=== PATIENT | male | born 1980 | race Caucasian/White ===

== ENCOUNTER 2016-12-09 21:55 | Inpatient (IN) | payer BC, OTHER ==
--- NOTE | 2016-12-09 22:07 | EDPHY ---
H & P Stated Complaint: DYSPNEA AND CHEST PAIN HPI/ROS: HPI CHIEF COMPLAINT: Chest pain HISTORY OF PRESENT ILLNESS: This patient very pleasant 36-year-old male, denies having any significant medical history does not take any daily medications he presents emergency room with chest discomfort. Patient reports that he was doing jujitsu an hour ago and developed sudden-onset pain in his left chest dull ache pressure sensation radiating to his bilateral jaws left side of his neck left arm and left scapula. It has been persistent for the past hour. He went home took a shower he thought it would go away he thought it was from doing ju[employer] however persistent he came to the emergency room. He drove himself here. Upon arrival to the emergency room is immediately brought back to ER room 11. He is actively having pain. His vital signs were noted at triage. He does not appear toxic he appears well. He denies having history of cardiac disease. Or any significant family history at a young age. He reports alcohol this weekend. Also took Kratom before 90 minutes massage today. No chest tenderness on palpation. No chest pain with range of motion. Past Medical History: Denies medical history Past Surgical History: Denies surgical history Social History: Alcohol this weekend, Kratom today denies daily tobacco use however smoked for 10 years. Family History: [place] in his father at age 50. ROS REVIEW OF SYSTEMS: A comprehensive 10 point review of systems is otherwise negative aside from elements mentioned in the history of present illness. Exam Constitutional triage nursing summary reviewed, vital signs reviewed, awake/ alert. Eyes normal conjunctivae and sclera, EOMI, PERRLA. HENT normal inspection, atraumatic, moist mucus membranes, no epistaxis, neck supple/ no meningismus, no raccoon eyes. Respiratory clear to auscultation bilaterally, normal breath sounds, no respiratory distress, no wheezing. Cardiovascular rate normal, regular rhythm, no murmur, no edema, distal pulses normal. Gastrointestinal soft, non-tender, no rebound, no guarding, normal bowel sounds, no distension, no pulsatile mass. Genitourinary no CVA tenderness. Musculoskeletal no midline vertebral tenderness, full range of motion, no calf swelling, no tenderness of extremities, no meningismus, good pulses, neurovascularly intact. Skin pink, warm, & dry, no rash, skin atraumatic. Neurologic awake, alert and oriented x 3, AAOx3, moves all 4 extremities equally, motor intact, sensory intact, CN II-XII intact, normal cerebellar, normal vision, normal speech. Psychiatric normal mood/affect. Heme/Lymph/Immune no lymphadenopathy. Differential diagnosis includes but is not limited to: ACS, atypical chest pain , pneumothorax, pneumonia, pulmonary embolism, aortic dissection, congestive heart failure, tumor, musculoskeletal pain, esophageal pain, GERD, peptic ulcer disease, pancreatitis Medical Decision Making: Plan for this patient full pvc monitor obtain EKG to rule out acute coronary syndrome, IV establishment, blood pressure both arms , chest x-ray, rule out aortic dissection Re-evaluation: EKG interpretation by me on record in [employer] system. Impression time of EKG 2216 this is sinus rhythm rate of 62. I do not appreciate acute ischemia with this EKG. There is no ST elevation. No significant ST depression. No significant T-wave abnormalities. 6: Patient receive full-dose aspirin and nitroglycerin. Refusing morphine. Still having ongoing chest pain. Will repeat his EKG. Chest x-ray one view. No pneumothorax. Mediastinum narrow. Interpreted by myself. 2306: I spoke with Dr. Michael to heal with Cardiology. We went over this patient's case. He did see the patient's EKG. He does not feel that the patient needs cardiac activation at this time. The EKG does not indicate acute ST elevation KS. He did request that we do a CT angiogram coronary scan with gated windows with 50 p.o. metoprolol however when I spoke with Radiology Dr. Delphine Cuadra she says were unable to perform this study at this time of night as a requires certain parameters and nursing skill at the CT scanner. And that to CT scan alena cuadra have never done this study. She also reports to me that we do not do this study at night it needs to be done during the day. She does state that for trying to rule out aortic dissection we should proceed with a CT angiogram with IV contrast which I will do. Most likely this patient be admitted to the hospital overnight for chest pain evaluation. Dr. Alec Hoskins you can see this patient in the morning. And if we still need a CT coronary will obtain that in the morning. EKG interpretation by me on record in [employer] system. Impression time of EKG 2247, this is a repeat EKG sinus rhythm rate of 64 again I do not appreciate acute ischemia. No ST elevation. No ST depression. No significant T-wave abnormalities. 2314: Troponin noted to be positive 0.125. I will touch base with Cardiology once again as the patient is having ongoing pain. 2320: Patient is still having ongoing chest pain. Patient be started on a nitroglycerin drip. After review his CT angiogram to make sure not have an aortic dissection he will be started on heparin. He will be admitted to the PCU. He does have a positive troponin. He still has ongoing pain in his agree to take morphine he initially declined this. Plan will be for morphine dose, heparin drip, nitroglycerin drip, serial EKGs serial troponins and admission to PCU. Cardiology has been consulted. I spoke with Dr. Alec Hoskins multiple times. EKG does not meet STEMI criteria. EKG interpretation by me on record in [employer] system. Impression time of EKG 2320, this is sinus rhythm rate of 60. This is a repeat EKG. I do not appreciate any ST elevation on this EKG or significant ST depression or significant T-wave abnormalities. Micro amplitude lead 3 and AVF. Otherwise unremarkable EKG. 3rd EKG. 2326: Spoke with Dr. Delphine Cuadra. She reports to me that this patient has a negative CT angio of his chest. No pulmonary embolism. No aortic dissection. Unremarkable CT angiogram. 2327: Given this will start heparin drip. Admit to medicine/hospalist. Cards Consulted. Heparin Gtt, NTG, Gtt. Full dose Asprin given. Patient doing better. Resting. Pain much improved. Source: Patient - Personal History Current Tetanus/Diphtheria Vaccine: Unsure Current Tetanus Diphtheria and Acellular Pertussis (TDAP): Unsure - Medical/Surgical History Hx Asthma: No Hx Chronic Respiratory Disease: No Hx Diabetes: No Hx Cardiac Disease: No Hx Renal Disease: No Hx Cirrhosis: No Hx Alcoholism: No Hx HIV/AIDS: No Hx Splenectomy or Spleen Trauma: No Other PMH: GERD , LOW BACK INJURY 2013, - Social History Smoking Status: Former smoker Constitutional: Initial Vital Signs Temperature (C) 36.8 C 12/09/16 22:02 Heart Rate 66 12/09/16 22:02 Respiratory Rate 22 H 12/09/16 22:02 Blood Pressure 154/92 H 12/09/16 22:02 O2 Sat (%) 100 12/09/16 22:02 O2 Delivery Mode Room Air Allergies/Adverse Reactions: No Known Allergies Allergy (Unverified 12/09/16 22:04) Home Medications: Medication Instructions Recorded Cholecalciferol Vit D3 [Vitamin D3 1,000 units PO DAILY 12/10/16 (*)] Herbals/Supplements -Info Only 1 ea PO DAILY 12/10/16 Multivitamins [Multivitamin (*)] 1 each PO DAILY 12/10/16 Omeprazole [Prilosec 20 mg] 20 mg PO DAILY 12/10/16 Medical Decision Making - Data Points Laboratory Results: Laboratory Results 12/09/16 22:31 12/09/16 22:31 Medications Given: Hydrocodone Bitart/Acetaminophen ([place] 5/325) 1 - 2 tab PO Q4HRS PRN PRN Reason: Pain, Moderate Able to Take PO Stop: 12/20/16 00:07 Last Admin: 12/10/16 15:06 Dose: 1 tab Aspirin Buffered (Aspirin Ec) 325 mg PO DAILY [facility] Stop: 06/08/17 08:59 Last Admin: 12/10/16 15:06 Dose: 325 mg Atorvastatin Calcium (Lipitor) 80 mg PO DAILY [facility] Stop: 06/08/17 08:59 Last Admin: 12/10/16 11:30 Dose: 80 mg Clopidogrel Bisulfate (Plavix) 75 mg PO DAILY [facility] Stop: 06/08/17 08:59 Last Admin: 12/10/16 14:05 Dose: Not Given Nitroglycerin/Dextrose (Nitroglycerin 200 Mcg/Ml (Premix)) 250 mls @ 0 mls/hr IV CONT CASANDRA; Titrate PRN Reason: Protocol Stop: 06/07/17 23:29 Last Admin: 12/09/16 23:39 Dose: 250 mls Lisinopril (Zestril) 2.5 mg PO DAILY [facility] Stop: 06/08/17 08:59 Last Admin: 12/10/16 12:25 Dose: 2.5 mg Lorazepam (Ativan Injection) 0.5 - 1 mg IVP Q8HRS PRN PRN Reason: Anxiety, Unable to Take PO Stop: 06/08/17 00:07 Last Admin: 12/10/16 01:29 Dose: 1 mg Metoprolol Tartrate (Lopressor) 25 mg PO BID CASANDRA Stop: 06/08/17 08:59 Last Admin: 12/10/16 15:09 Dose: 25 mg Morphine Sulfate (Morphine) 2 - 4 mg IVP Q1HR PRN PRN Reason: Pain, Severe Unable to Take PO Stop: 12/20/16 00:07 Last Admin: 12/10/16 15:05 Dose: 2 mg Discontinued Medications Acetaminophen (Tylenol) 1,000 mg PO EDNOW ONE Stop: 12/10/16 00:12 Last Admin: 12/10/16 00:25 Dose: 1,000 mg Aspirin Buffered (Aspirin Ec) 325 mg PO EDNOW ONE Stop: 12/09/16 22:17 Last Admin: 12/09/16 22:29 Dose: 325 mg Aspirin Buffered (Aspirin Ec) 325 mg PO ONCALL ONE Stop: 12/10/16 07:33 Last Admin: 12/10/16 14:06 Dose: Not Given Clopidogrel Bisulfate (Plavix) 600 mg PO ONCE ONE Stop: 12/10/16 08:53 Last Admin: 12/10/16 12:36 Dose: Not Given Diazepam (Valium) 5 mg PO ONCALL ONE Stop: 12/10/16 07:33 Last Admin: 12/10/16 14:05 Dose: Not Given Diphenhydramine HCl (Benadryl) 25 mg PO ONCALL ONE Stop: 12/10/16 07:33 Last Admin: 12/10/16 14:04 Dose: Not Given Famotidine (Pepcid) 20 mg PO ONCALL ONE Stop: 12/10/16 07:33 Last Admin: 12/10/16 14:04 Dose: Not Given Heparin Sodium (Porcine) (Heparin Injection) 0 unit IVP ONCE ONE PRN Reason: Protocol Stop: 12/10/16 00:14 Last Admin: 12/10/16 00:26 Dose: 5,800 units Hydromorphone HCl (Dilaudid) 1 mg IVP ONCE ONE Stop: 12/10/16 02:40 Last Admin: 12/10/16 05:21 Dose: Not Given Sodium Chloride (Ns) 1,000 mls @ 0 mls/hr IV EDNOW ONE; Wide Open PRN Reason: Protocol Stop: 12/09/16 22:14 Last Admin: 12/09/16 22:29 Dose: 1,000 mls Heparin Sodium (Porcine) (Heparin 50 Units/Ml (Premix)) 500 mls @ 0 mls/hr IV EDNOW ONE PRN Reason: As Directed Stop: 12/09/16 23:27 Last Admin: 12/09/16 23:53 Dose: 500 mls Sodium Chloride (Ns) 1,000 mls @ 0 mls/hr IV ONCE ONE PRN Reason: Wide Open Stop: 12/09/16 23:34 Last Admin: 12/09/16 23:34 Dose: 1,000 mls Magnesium Sulfate/Dextrose (Magnesium Sulf 1 Gm (Premix)) 100 mls @ 100 mls/hr IV ONCE ONE Stop: 12/10/16 01:16 Last Admin: 12/10/16 01:49 Dose: 100 mls Magnesium Sulfate/Dextrose (Magnesium Sulf 1 Gm (Premix)) 100 mls @ 100 mls/hr IV ONCE ONE Stop: 12/10/16 14:23 Last Admin: 12/10/16 15:06 Dose: 100 mls Metoprolol Tartrate (Lopressor) 50 mg PO EDNOW ONE Stop: 12/09/16 23:01 Last Admin: 12/09/16 23:09 Dose: Not Given Morphine Sulfate (Morphine) 4 mg IVP EDNOW ONE Stop: 12/09/16 22:17 Last Admin: 12/09/16 23:24 Dose: 4 mg Morphine Sulfate (Morphine) 4 mg IVP EDNOW ONE Stop: 12/09/16 23:21 Last Admin: 12/09/16 23:31 Dose: Not Given Morphine Sulfate (Morphine) 4 mg IVP EDNOW ONE Stop: 12/09/16 23:34 Last Admin: 12/09/16 23:38 Dose: 4 mg Morphine Sulfate (Morphine) 1 - 2 mg IVP Q1HR PRN PRN Reason: Pain, Severe Unable to Take PO Stop: 12/20/16 00:07 Last Admin: 12/10/16 02:41 Dose: 2 mg Nitroglycerin (Nitrostat) 0.4 mg SL EDNOW ONE Stop: 12/09/16 22:17 Last Admin: 12/09/16 22:29 Dose: 0.4 mg Ondansetron HCl (Zofran) 4 mg IVP EDNOW ONE Stop: 12/09/16 22:17 Last Admin: 12/09/16 23:16 Dose: Not Given Ondansetron HCl (Zofran) 4 mg IVP EDNOW ONE Stop: 12/09/16 23:21 Last Admin: 12/09/16 23:22 Dose: 4 mg Departure - Departure Disposition: To OP Cath/Surgery Clinical Impression: Troponin level elevated Chest pain Qualifiers: Chest pain type: unspecified Qualified Code(s): R07.9 - Chest pain, unspecified Condition: Serious
[2016-12-09] MEDS ORDERED: NS 1,000 ML IV ONE ×2 (22:13→23:33)
[2016-12-09] MEDS ORDERED: NITROGLYCERIN 0.4 MG BTL SL ONE (22:16)
[2016-12-09] MEDS ORDERED: ONDANSETRON 4 MG/2 ML VIAL IVP ONE ×2 (22:16→23:20)
[2016-12-09] MEDS ORDERED: ASPIRIN EC 325 MG TAB PO ONE (22:16)
--- NOTE | 2016-12-09 22:19 | CPEKG ---
Heart Rate: 62 RR Interval: 968 P-R Interval: 152 QRSD Interval: 98 QT Interval: 380 QTC Interval: 386 P Arboles: 50 QRS [place]boles: 59 T Wave [place]: 43 EKG Severity - NORMAL ECG - EKG Impression: SINUS RHYTHM EKG Impression: ST elevation in aVF, II Electronically Signed By: Angel Ramirez 11-Dec-2016 10:54:31
[2016-12-09] MEDS ORDERED: IOPAMIDOL (ISOVUE 370) 100 ML BTL IV ONE (22:29)
[2016-12-09 22:39] LABS: % IMMATURE GRANULYOCYTES 0.3 % (0.0-1.1); ABSOLUTE IMMATURE GRANULOCYTES 0.04 10^3/uL (0.00-0.10); ADD DIFF? NO; ADD MORPH? NO; ADD SCAN? NO; ATYPICAL LYMPHOCYTE FLAG 0 (0-99); FRAGMENT RBC FLAG 0 (0-99); HEMATOCRIT 43.7 % (40.0-51.0); HEMOGLOBIN 15.3 g/dL (13.7-17.5); LEFT SHIFT FLG 0 (0-99); LIPEMIA HEMOLYSIS FLAG 90 (0-99); MEAN CELL HEMOGLOBIN 31.6 pg (27.9-34.1); MEAN CELL VOLUME 90.3 fL (81.5-99.8); MEAN PLATELET VOLUME 9.6 fL (8.7-11.7); PLATELET CLUMPS FLAG 0 (0-99); PLATELET COUNT 225 10^3/uL (150-400); RED BLOOD CELL COUNT 4.84 10^6/uL (4.40-6.38); RED CELL DISTRIBUTION WIDTH 11.8 % (11.5-15.2)
[2016-12-09 22:48] LABS: INR 0.94 (0.83-1.16); PROTIME(PATIENT) 12.5 SEC (12.0-15.0)
[2016-12-09 22:59] LABS: ALANINE AMINOTRANSFERASE 57 IU/L (21-72); ALBUMIN 4.6 g/dL (3.5-5.0); ALKALINE PHOSPHATASE 71 IU/L (38-126); ANION GAP 13 mEq/L (8-16); ASPARTATE AMINOTRANSFERASE 45 IU/L (17-59); BILIRUBIN,TOTAL 0.5 mg/dL (0.1-1.4); BILIRUBIN-CONJUGATED 0.2 mg/dL (0.0-0.5); BILIRUBIN-UNCONJUGATED 0.3 mg/dL (0.0-1.1); CALCIUM 9.8 mg/dL (8.5-10.4); CARBON DIOXIDE 24 mEq/l (22-31); CHLORIDE 98 mEq/L (97-110); CREATININE 1.2 mg/dL (0.7-1.3); GLOMERULAR FILTRATION RATE > 60; GLUCOSE 92 mg/dL (70-100); MAGNESIUM 1.4 mg/dL (1.6-2.3); POTASSIUM 3.7 mEq/L (3.5-5.2); SODIUM 135 mEq/L (134-144); TOTAL PROTEIN 7.2 g/dL (6.3-8.2)
[2016-12-09] MEDS ORDERED: METOPROLOL TARTRATE 50 MG TAB PO ONE (23:00)
[2016-12-09 23:11] LABS: TROPONIN I 0.125 ng/mL (0.000-0.034)
--- NOTE | 2016-12-09 23:23 | CPEKG ---
Heart Rate: 60 RR Interval: 1000 P-R Interval: 164 QRSD Interval: 100 QT Interval: 400 QTC Interval: 400 P [place]: 51 QRS [place]: 41 T Wave [place]: 39 EKG Severity - NORMAL ECG - EKG Impression: SINUS RHYTHM Electronically Signed By: Angel Ramirez 11-Dec-2016 10:53:47
[2016-12-09] MEDS ORDERED: HEPARIN/DEXTROSE 500 ML IV ONE (23:26)
[2016-12-09] MEDS ORDERED: NITROGLYCERIN/DEXTROSE 250 ML IV SCH (23:30)
[2016-12-10] MEDS ORDERED: HEPARIN 10,000 UNIT/10 ML MDV ONE ×2 (00:01→07:32)
[2016-12-10] MEDS ORDERED: ACETAMINOPHEN 325 MG TAB PO PRN (00:08)
[2016-12-10] MEDS ORDERED: ACETAMINOPHEN 650 MG SUPP PR PRN (00:08)
[2016-12-10] MEDS ORDERED: ONDANSETRON 4 MG/2 ML VIAL IVP PRN (00:08)
[2016-12-10] MEDS ORDERED: ACETAMINOPHEN 500 MG TAB PO ONE (00:11)
[2016-12-10] MEDS ORDERED: HEPARIN 10,000 UNIT/10 ML MDV IVP ONE (00:13)
[2016-12-10] MEDS ORDERED: HEPARIN 10,000 UNIT/10 ML MDV IVP PRN (00:13)
[2016-12-10] MEDS ORDERED: HEPARIN/DEXTROSE 500 ML IV SCH (00:15)
[2016-12-10] MEDS ORDERED: NS 1,000 ML IV SCH ×3 (00:15→09:00)
[2016-12-10] MEDS ORDERED: PROTOCOL MAGNESIUM 1 DOSE IV PRN (00:17)
[2016-12-10] MEDS ORDERED: MAGNESIUM SULF 1 GM/DEXTROSE 100 ML IV ONE ×2 (00:17→13:24)
[2016-12-10] MEDS ORDERED: PROTOCOL POTASSIUM 1 DOSE MISC PRN (00:17)
[2016-12-10] MEDS ORDERED: hydrALAZINE 20 MG/ML VIAL IVP PRN (00:18)
[2016-12-10] MEDS ORDERED: NITROGLYCERIN/DEXTROSE 250 ML IV SCH (00:30)
[2016-12-10] MEDS ORDERED: LORazepam 2 MG/ML INJ ONE (01:24)
[2016-12-10] MEDS: LORazepam 2 MG/ML INJ IVP PRN ×2 (01:29→20:50)
[2016-12-10] MEDS ORDERED: MAGNESIUM SULF 1 GM/DEXTROSE 100 ML BAG IV ONE (01:45)
[2016-12-10] MEDS ORDERED: HYDROmorphONE/DILAUDID 1 MG/ML INJ IVP ONE (02:39)
--- NOTE | 2016-12-10 03:20 | PDGENHP ---
History and Physical - Chief Complaint Chest pain - History of Present Illness Date of Service 12/10/2016 Source - patient provides history and appears reliable. EMR reviewed and case discussed with ED provider. HPI - Pleasant 36 yo M without significant PMHx who presents to the ED today after development of left sided chest pain. Patient reports his symptoms started during [facility] [employer] session this evening and have not been relieved by any rest, massage or movement. Patient describes pain as severe and achy. He notes radiating pain to his bilateral jaws, left shoulder, arm and shoulder blades. Patient reports a very active lifestyle jogging multiple times weekly and participating in various sports. Patient notes his average resting heart rate typically 40s-50. FHx significant for CAD father age 50s-60s and paternal uncle with event in his 40s. Patient admits he utilized a dose of Kratom (herbal supplement used for stimulant/pain properties with potential risks for cardiac involvement/seizures ) earlier today prior to having a massage to help him relax. He subsequently went to [facility] where he began to experience his sx as above. History Information - Allergies/Home Medication List Allergies/Adverse Reactions: No Known Allergies Allergy (Unverified 12/09/16 22:04) Home Medications: NK [No Known Home Meds] 12/09/16 [Last Taken Unknown] I have personally reviewed and updated: family history, medical history, social history, surgical history - Past Medical History Additional medical history: anxiety, chronic back pain related to herniated disk after injury. - Surgical History Reports: no pertinent surgical hx - Family History Positive for: CAD, father with history of CAD younger than 55 (50-60 patient unsure on exact age) Additional family history: paternal uncle CAD/UT age 40s. - Social History Smoking Status: Former smoker Alcohol Use: Occasionally Drug Use: None Additional social history: Code - FULL. Review of Systems Review of Systems: ROS: 10pt was reviewed & negative except for what was stated in HPI & below Respiratory: Reports: cough (exposure to neice/nephew with similar sx. ) Genitourinary: Reports: other (hx of occasional urinary retention with history of back injury and disc herniation. ) Physical Exam Physical Exam: Temp Pulse Resp BP Pulse Ox 36.8 C 76 20 127/69 H 92 12/09/16 22:02 12/10/16 02:00 12/10/16 02:00 12/10/16 02:00 12/10/16 02:00 Constitutional: no apparent distress, appears nourished, other (NAD. pleasant adult male resting on gurney. Patient appears to be unable to get comfortable holding his right arm over left arm. ) Eyes: PERRL, anicteric sclera, EOMI Ears, Nose, Mouth, Throat: moist mucous membranes, other Cardiovascular: regular rate and rhythym (slightly malvin 60s), no murmur, rub, or gallop, systolic murmur Peripheral Pulses: 1+: dorsalis-pedis (R), dorsalis-pedis (L) Gastrointestinal: normoactive bowel sounds, soft, non-tender abdomen, no palpable masses, No tenderness Genitourinary: no bladder fullness, no bladder tenderness, No salmon in urethra Skin: warm, No erythema, No fluctuance, No rash Musculoskeletal: full muscle strength, No generalized weakness Neurologic: AAOx3, sensation intact bilaterally, other (nonfocal exam. ), No weakness, No numbness Psychiatric: anxious, No depressed, No suicidal ideation, No poor insight, No poor judgement, No poor memory Lymph, Heme, Immunologic: No lymphadenopathy Lab Data & Imaging Review 12/09/16 22:31 12/09/16 22:31 WBC 13.87 10^3/uL (3.80-9.50) H 12/09/16 22:31 RBC 4.84 10^6/uL (4.40-6.38) 12/09/16 22:31 Hgb 15.3 g/dL (13.7-17.5) 12/09/16 22:31 Hct 43.7 % (40.0-51.0) 12/09/16 22:31 MCV 90.3 fL (81.5-99.8) 12/09/16 22:31 MCH 31.6 pg (27.9-34.1) 12/09/16 22:31 MCHC 35.0 g/dL (32.4-36.7) 12/09/16 22:31 RDW 11.8 % (11.5-15.2) 12/09/16 22:31 Plt Count 225 10^3/uL (150-400) 12/09/16 22:31 MPV 9.6 fL (8.7-11.7) 12/09/16 22: Neut % (Auto) 76.1 % (39.3-74.2) H 12/09/16 22: Lymph % (Auto) 14.5 % (15.0-45.0) L 12/09/16: [place] % (Auto) 6.7 % (4.5-13.0) 12/09/16: Eos % (Auto) 2.0 % (0.6-7.6) 12/09/16 22: Baso % (Auto) 0.4 % (0.3-1.7) 12/09/16: Nucleat RBC Rel Count 0.0 % (0.0-0.2) 12/09/16: Absolute Neuts (auto) 10.56 10^3/uL (1.70-6.50) H 12/09/16 22: Absolute Lymphs (auto) 2.01 10^3/uL (1.00-3.00) 12/09/16 22: Absolute Monos (auto) 0.93 10^3/uL (0.30-0.80) H 12/09/16 22:31 Absolute Eos (auto) 0.28 10^3/uL (0.03-0.40) 12/09/16: Absolute Basos (auto) 0.05 10^3/uL (0.02-0.10) 12/09/16: Absolute Nucleated RBC 0.00 10^3/uL (0-0.01) 12/09/16 22: Immature Gran % 0.3 % (0.0-1.1) 12/09/16: Immature Gran # 0.04 10^3/uL (0.00-0.10) 12/09/16: PT 12.5 SEC (12.0-15.0) 12/09/16: INR 0.94 (0.83-1.16) 12/09/16: APTT 27.0 SEC (23.0-38.0) 12/09/16 22: D-Dimer < 0.27 ug/mLFEU (0.00-0.50) 12/09/16 22:31 Sodium 135 mEq/L (134-144) 12/09/16 22:31 Potassium 3.7 mEq/L (3.5-5.2) 12/09/16 22:31 Chloride 98 mEq/L (97-110) 12/09/16 22:31 Carbon Dioxide 24 mEq/l (22-31) 12/09/16 22:31 Anion Gap 13 mEq/L (8-16) 12/09/16 22:31 BUN 15 mg/dL (7-23) 12/09/16 22:31 Creatinine 1.2 mg/dL (0.7-1.3) 12/09/16 22:31 Estimated GFR > 60 12/09/16 22:31 Glucose 92 mg/dL (70-100) 12/09/16 22:31 Calcium 9.8 mg/dL (8.5-10.4) 12/09/16 22:31 Magnesium 1.4 mg/dL (1.6-2.3) L 12/09/16 22:31 Total Bilirubin 0.5 mg/dL (0.1-1.4) 12/09/16 22:31 Conjugated Bilirubin 0.2 mg/dL (0.0-0.5) 12/09/16 22:31 Unconjugated Bilirubin 0.3 mg/dL (0.0-1.1) 12/09/16 22:31 AST 45 IU/L (17-59) 12/09/16 22:31 ALT 57 IU/L (21-72) 12/09/16 22:31 Alkaline Phosphatase 71 IU/L (38-126) 12/09/16 22:31 Troponin I 2.140 ng/mL (0.000-0.034) H 12/10/16 02:00 NT-Pro-B Natriuret Pep 19 pg/mL (0-125) 12/09/16 22:31 Total Protein 7.2 g/dL (6.3-8.2) 12/09/16 22:31 Albumin 4.6 g/dL (3.5-5.0) 12/09/16 22:31 Lipase 95 IU/L (23-300) 12/09/16 22:31 Urine Opiates Screen NEGATIVE (NEGATIVE) 12/09/16 11:15 Urine Barbiturates NEGATIVE (NEGATIVE) 12/09/16 11:15 Ur Phencyclidine Scrn NEGATIVE (NEGATIVE) 12/09/16 11:15 Ur Amphetamine Screen NEGATIVE (NEGATIVE) 12/09/16 11:15 U Benzodiazepines Scrn NEGATIVE (NEGATIVE) 12/09/16 11:15 Urine Cocaine Screen NEGATIVE (NEGATIVE) 12/09/16 11:15 U Marijuana (THC) Screen NEGATIVE (NEGATIVE) 12/09/16 11:15 Imaging Review: CT Angiogram of the Chest Clinical Indications: Chest pain that radiates to the left side. Back pain. Rule out coronary artery disease. Rule out dissection. Comparison: None Technique: 1.25 mm thin axial images are performed from lung apex through base during intravenous contrast injection of 95 mL of Isovue-370. Coronal and parasagittal reformatted images are reviewed on PACS workstation. Dose reduction techniques were utilized. Findings: CT Angiogram of the Chest: There is no evidence for acute or chronic pulmonary embolic disease. Central pulmonary vasculature demonstrates normal contrast enhancement. No masses. CT Scan Chest: Lungs are clear. Heart and mediastinum are normal. There is no evidence for nodule or consolidation. No effusion. Visualized upper abdomen is normal. No adenopathy. Impression: 1. No pulmonary embolism. 2. Clear lungs. 3. No dissection. Findings and recommendations discussed with Colton Yanez MD at 2325 hour, 12/09/2016. Final report concurs with initial preliminary interpretation. Visualized and Interpreted Chest x-ray results: Yes Chest X-Ray results: no infiltrate, normal heart size Visualized and Interpreted imaging results: Yes Visualized and Interpreted EKG results: Yes EKG Interpretation: Positive for: normal sinsus rhythm, ST elevation, ST depression EKG additional interpertation: NSR 60s. <1mm st elevation in lead II with isolated qwave II as well. Assessment & Plan Assessment: Chest pain (Acute) Troponin level elevated (Acute) A/P - 36 yo M with pmx significant for anxiety presents to ED today with new onset of left sided chest pain with radiation to jaw and left arm. 1. Chest pain- Patient with elevated troponin, no acute EKG changes. Concerning for Acute coronary syndrome/UT with history of early cardiac events with father and paternal uncle. HEART score 3. Cardiology consulted from ED and will see the patient in AM. Continue with nitro gtt, heparin gtt. Patient received ASA. morphine and ativan prn for pain. Incidentally patient reports he took an herbal supplement today (Kratom - plant based that has stimulant and sedative properties based on dose. effects reported to last 2-7 hours dosage dependent. 2. Elevated BP without hx HTN - pain management. hydralazine prn for BPs. 3. SIRS - patient qualifies with tachycardia and leukocytosis but no evidence of infectious process and likely related to cardiac event/response. Continue to monitor. IVF. 4. hypomagnesemia - replacement ordered 5. anxiety - ativan prn. FEN - IVF. electrolyte replacement prn. NPO until evaluation with cardiology in AM. PPX - SCDs. on lovenox gtt. COR - FULL. Patient desires his brother to act as proxy if needed.
[2016-12-10 06:28] LABS: % IMMATURE GRANULYOCYTES 0.1 % (0.0-1.1); ABSOLUTE IMMATURE GRANULOCYTES 0.01 10^3/uL (0.00-0.10); ADD DIFF? NO; ADD MORPH? NO; ADD SCAN? NO; ATYPICAL LYMPHOCYTE FLAG 0 (0-99); FRAGMENT RBC FLAG 20 (0-99); HEMATOCRIT 37.9 % (40.0-51.0); HEMOGLOBIN 13.3 g/dL (13.7-17.5); LEFT SHIFT FLG 0 (0-99); LIPEMIA HEMOLYSIS FLAG 90 (0-99); MEAN CELL HEMOGLOBIN 31.5 pg (27.9-34.1); MEAN CELL HEMOGLOBIN CONCENTR. 35.1 g/dL (32.4-36.7); MEAN CELL VOLUME 89.8 fL (81.5-99.8); MEAN PLATELET VOLUME 9.5 fL (8.7-11.7); PLATELET CLUMPS FLAG 10 (0-99); PLATELET COUNT 200 10^3/uL (150-400); RED BLOOD CELL COUNT 4.22 10^6/uL (4.40-6.38); RED CELL DISTRIBUTION WIDTH 11.9 % (11.5-15.2)
[2016-12-10 06:36] LABS: INR 1.07 (0.83-1.16); PROTIME(PATIENT) 13.8 SEC (12.0-15.0)
[2016-12-10 06:43] LABS: ANION GAP 7 mEq/L (8-16); CALCIUM 8.6 mg/dL (8.5-10.4); CARBON DIOXIDE 25 mEq/l (22-31); CHLORIDE 105 mEq/L (97-110); GLOMERULAR FILTRATION RATE > 60; GLUCOSE 107 mg/dL (70-100); MAGNESIUM 1.8 mg/dL (1.6-2.3); POTASSIUM 3.8 mEq/L (3.5-5.2); SODIUM 137 mEq/L (134-144)
[2016-12-10 06:54] LABS: CK-MB INTERPRETATION POSITIVE (NEGATIVE)
[2016-12-10] MEDS ORDERED: FAMOTIDINE 20 MG TAB PO ONE (07:32)
[2016-12-10] MEDS ORDERED: MIDAZOLAM 2 MG/2 ML VIAL ONE (07:32)
[2016-12-10] MEDS ORDERED: fentaNYL 100 MCG/2 ML INJ ONE (07:32)
[2016-12-10] MEDS ORDERED: VERAPAMIL 5 MG/2 ML VIAL ONE (07:32)
[2016-12-10] MEDS ORDERED: diphenhydrAMINE 25 MG CAP PO ONE (07:32)
[2016-12-10] MEDS ORDERED: DIAZEPAM 5 MG TAB PO ONE (07:32)
[2016-12-10] MEDS ORDERED: ASPIRIN EC 325 MG TAB PO ONE (07:32)
[2016-12-10] MEDS ORDERED: LIDOCAINE 1% 300 MG/30 ML SDV ONE (07:32)
[2016-12-10] MEDS ORDERED: IOPAMIDOL (ISOVUE-370) 150 ML BTL IV ONE ×2 (07:33→08:33)
--- NOTE | 2016-12-10 07:34 | PDPROPOC ---
Sedation Plan of Care Sedation Plan of Care: vital signs stable, mental status noted, patient educated of risks, benefits, alternatives, patient can tolerate sedation ASA Classification: ASA 2 Planned drugs: fentanyl, midazolam Mallampati Score: Class 1 Mallampati Reference Image: Patient passed 3-3-2 rule?: Yes
--- NOTE | 2016-12-10 07:37 | PDCARCONS ---
Cardiology Consult Reason for Consult: chest pain Chief Complaint: chest pain. Requesting Physician: Hakan History of Present Illness: 36 yo male , hx. of elevated cholesterol, family hx. of early heary disease, remote tobacco admitted with acute onset of left precordial chest pain, began at exercise, persists this morning with radiation to the jaw, back and arm. Some pleuritic component. Diaphoretic with elevated troponin to 2. ECG does not show st changes. He has been on heparin and nitro overnight with minimal relief. Patient has " a sense of impending doom." Denies syncope, near syncope, No PND or orthopnea. Has been taking supplements with known cardiotoxicity. History Information - Allergies/Home Medication List Allergies/Adverse Reactions: No Known Allergies Allergy (Unverified 12/09/16 22:04) Home Medications: NK [No Known Home Meds] 12/09/16 [Last Taken Unknown] I have personally reviewed and updated: family history, medical history, social history, surgical history Past Medical History: - Past Medical History hyperlipidemia - Surgical History Reports: no pertinent surgical hx - Family History Positive for: male first degree with history of premature CAD (Supplement for Nick Magana. No family here.) - Social History Smoking Status: Former smoker Alcohol Use: Occasionally Drug Use: None Cardiac History - Cardiac History Cardiac Risk Factors: lipidemia, family history of premature CAD, male Timing/Duration: Hours Severity: severe Severity Scale: 10 Location: substernal, back Activities at Onset: activity Modifying Factors: improves with: breathing Associated Symptoms: diaphoresis (radiates to jaw.) MARYAM Risk Evaluation age greater or equal to 65: no greater or equal to 3 CAD risk factors: yes known CAD(stenosis greater or eqaul to 50%): no ASA use in past 7 days: yes severe angina(greater or equal to 2 episodes in 24hrs): yes EKG ST changes greater or equal to 0.5mm: no positive cardiac marker: yes Total Score: 4 MARYAM Score: 19.9% risk Physical Exam Physical Exam: Temp Pulse Resp BP Pulse Ox 36.8 C 58 L 18 135/69 H 94 12/09/16 22:02 12/10/16 06:00 12/10/16 06:00 12/10/16 06:00 12/10/16 06:00 Constitutional: uncomfortable Eyes: PERRL, anicteric sclera Ears, Nose, Mouth, Throat: moist mucous membranes Cardiovascular: regular rate and rhythym, no murmur, rub, or gallop, pulses symmetric bilaterally, No systolic murmur, No JVD Peripheral Pulses: 2+: carotid (R), carotid (L), femoral (R), femoral (L), dorsalis-pedis (R), dorsalis-pedis (L) Respiratory: no respiratory distress, no rales or rhonchi Gastrointestinal: normoactive bowel sounds, soft, non-tender abdomen, no palpable masses, No tenderness, No hepatosplenomegally Genitourinary: no bladder fullness Skin: normal color, No rash Musculoskeletal: full muscle strength, no muscle tenderness, No muscular tenderness Neurologic: AAOx3, No facial droop Psychiatric: interacting appropriately, anxious Lymph, Heme, Immunologic: no cervical LAD, no supraclavicular LAD, No lymphadenopathy Lab and Imaging 12/10/16 06:10 12/10/16 06:10 WBC 8.51 10^3/uL (3.80-9.50) 12/10/16 06:10 RBC 4.22 10^6/uL (4.40-6.38) L 12/10/16 06:10 Hgb 13.3 g/dL (13.7-17.5) L 12/10/16 06:10 Hct 37.9 % (40.0-51.0) L 12/10/16 06:10 MCV 89.8 fL (81.5-99.8) 12/10/16 06:10 MCH 31.5 pg (27.9-34.1) 12/10/16 06:10 MCHC 35.1 g/dL (32.4-36.7) 12/10/16 06:10 RDW 11.9 % (11.5-15.2) 12/10/16 06:10 Plt Count 200 10^3/uL (150-400) 12/10/16 06:10 MPV 9.5 fL (8.7-11.7) 12/10/16 06:10 Neut % (Auto) 54.6 % (39.3-74.2) 12/10/16 06:10 Lymph % (Auto) 32.4 % (15.0-45.0) 12/10/16 06:10 [place] % (Auto) 8.8 % (4.5-13.0) 12/10/16 06:10 Eos % (Auto) 3.5 % (0.6-7.6) 12/10/16 06:10 Baso % (Auto) 0.6 % (0.3-1.7) 12/10/16 06:10 Nucleat RBC Rel Count 0.0 % (0.0-0.2) 12/10/16 06:10 Absolute Neuts (auto) 4.64 10^3/uL (1.70-6.50) 12/10/16 06:10 Absolute Lymphs (auto) 2.76 10^3/uL (1.00-3.00) 12/10/16 06:10 Absolute Monos (auto) 0.75 10^3/uL (0.30-0.80) 12/10/16 06:10 Absolute Eos (auto) 0.30 10^3/uL (0.03-0.40) 12/10/16 06:10 Absolute Basos (auto) 0.05 10^3/uL (0.02-0.10) 12/10/16 06:10 Absolute Nucleated RBC 0.00 10^3/uL (0-0.01) 12/10/16 06:10 Immature Gran % 0.1 % (0.0-1.1) 12/10/16 06:10 Immature Gran # 0.01 10^3/uL (0.00-0.10) 12/10/16 06:10 PT 13.8 SEC (12.0-15.0) 12/10/16 06:10 INR 1.07 (0.83-1.16) 12/10/16 06:10 APTT 156.0 SEC (23.0-38.0) H* D 12/10/16 06:10 D-Dimer < 0.27 ug/mLFEU (0.00-0.50) 12/09/16 22:31 Heparin Anti-Xa, Unfract 0.73 IU/mL (0.32-0.67) H* 12/10/16 06:10 Sodium 137 mEq/L (134-144) 12/10/16 06:10 Potassium 3.8 mEq/L (3.5-5.2) 12/10/16 06:10 Chloride 105 mEq/L (97-110) 12/10/16 06:10 Carbon Dioxide 25 mEq/l (22-31) 12/10/16 06:10 Anion Gap 7 mEq/L (8-16) L 12/10/16 06:10 BUN 10 mg/dL (7-23) 12/10/16 06:10 Creatinine 1.0 mg/dL (0.7-1.3) 12/10/16 06:10 Estimated GFR > 60 12/10/16 06:10 Glucose 107 mg/dL (70-100) H 12/10/16 06:10 Calcium 8.6 mg/dL (8.5-10.4) 12/10/16 06:10 Magnesium 1.8 mg/dL (1.6-2.3) 12/10/16 06:10 Total Bilirubin 0.5 mg/dL (0.1-1.4) 12/09/16 22:31 Conjugated Bilirubin 0.2 mg/dL (0.0-0.5) 12/09/16 22:31 Unconjugated Bilirubin 0.3 mg/dL (0.0-1.1) 12/09/16 22:31 AST 45 IU/L (17-59) 12/09/16 22:31 ALT 57 IU/L (21-72) 12/09/16 22:31 Alkaline Phosphatase 71 IU/L (38-126) 12/09/16 22:31 Creatine Kinase 1488 IU/L (0-224) H 12/10/16 06:10 CK-MB (CK-2) Fraction 96.90 ng/mL (0.00-3.19) H 12/10/16 06:10 CK-MB (CK-2) % 6.5 % (0.0-4.0) H 12/10/16 06:10 Creatine Kinase Interp POSITIVE (NEGATIVE) H 12/10/16 06:10 Troponin I 7.780 ng/mL (0.000-0.034) H 12/10/16 06:10 NT-Pro-B Natriuret Pep 62 pg/mL (0-125) 12/10/16 06:10 Total Protein 7.2 g/dL (6.3-8.2) 12/09/16 22:31 Albumin 4.6 g/dL (3.5-5.0) 12/09/16 22:31 Lipase 95 IU/L (23-300) 12/09/16 22:31 TSH 2.000 uIU/mL (0.465-4.680) 12/10/16 06:10 Urine Opiates Screen NEGATIVE (NEGATIVE) 12/09/16 11:15 Urine Barbiturates NEGATIVE (NEGATIVE) 12/09/16 11:15 Ur Phencyclidine Scrn NEGATIVE (NEGATIVE) 12/09/16 11:15 Ur Amphetamine Screen NEGATIVE (NEGATIVE) 12/09/16 11:15 U Benzodiazepines Scrn NEGATIVE (NEGATIVE) 12/09/16 11:15 Urine Cocaine Screen NEGATIVE (NEGATIVE) 12/09/16 11:15 U Marijuana (THC) Screen NEGATIVE (NEGATIVE) 12/09/16 11:15 EKG additional interpertation: SR. No ST elevation. CT angio no aortic pathoogy with no pe. A/P Assessment: 36 yo on going typical anginal pain with radiation to jaw, sense of impending doom. Rising troponin, Non-daignostic ecg. All consistent with evolving myocardial infarction. Concerned for Circumflex occlusion with normal ecg. Plan: Emergent angiogram with possible PCI. Broaden DDX. post procedure pending result. Secondary prevention. Risks and benefits discussed. Patient has no next of kin available. Review of Systems Review of Systems: - Review of Systems Constitutional: weakness. denies: chills, fever EENTM: no symptoms reported Respiratory: shortness of breath Cardiac: chest pain. denies: irregular heart rate, lightheadedness, palpitations, syncope, other Gastrointestinal/Abdominal: no symptoms reported Genitourinary: no symptoms Musculoskelatal: no symptoms Skin: no symptoms Neurological: no symptoms Hematologic/Lymphatic: no symptoms reported Immunologic/allergic: no symptoms reported Past Medical History PMH: - Personal History Current Tetanus/Diphtheria Vaccine: Unsure Current Tetanus Diphtheria and Acellular Pertussis (TDAP): Unsure - Medical/Surgical History Hx Asthma: No Hx Chronic Respiratory Disease: No Hx Cardiac Disease: No Hx Diabetes: No Hx Renal Disease: No Hx Alcoholism: No Hx Cirrhosis: No Hx HIV/AIDS: No Hx Splenectomy or Spleen Trauma: No Other PMH: GERD , LOW BACK INJURY 2013, - Social History Smoking Status: Former smoker Additional Social History:
[2016-12-10] MEDS ORDERED: BIVALIRUDIN 250 MG/5 ML VIAL IV ONE (08:10)
[2016-12-10] MEDS ORDERED: CLOPIDOGREL BISULFATE 75 MG TAB ONE (08:15)
[2016-12-10] MEDS ORDERED: NITROGLYCERIN 1,500 MCG/15 ML VIAL MISC ONE (08:25)
[2016-12-10] MEDS ORDERED: ATROPINE SULFATE 1 MG/10 ML SYR IVP PRN (08:52)
[2016-12-10] MEDS ORDERED: CLOPIDOGREL BISULFATE 75 MG TAB PO ONE (08:52)
--- NOTE | 2016-12-10 09:06 | PDDXCAT ---
Diagnostic Cath Note - . Date: 12/10/16 Display Fabricator: [place] Indication: other (Acute myocardial infarction) - Procedure Access: right wrist Procedure: left heart catheterization, coronary angiography, left ventriculogram - Materials Left Heart Cath size: 5F Left Heart Cath materials: pigtail ([id number]) - Findings-Left Heart Catheterization LM: Unobstructed LAD: Luminal irregularities without focal stenosis. LCX: Thrombotic occlusion of the distal obtuse marginal branch RCA: 85% body RCA stenosis. EDP: 20 mm of mercury postprocedure LVEF: 60% Wall motion: Mild lateral hypokinesis Complications: None Estimated blood loss: <50ml Closure method: TR Band Assessment: Procedure: Please see attached computer report for details. Contrast: 325 cc. Sedation: 4 mg Versed, 100 mcg fentanyl, 50 mg Benadryl. Radiation: 3 minutes fluoroscopy, 1206 mGy. Conclusion: Acute posterior myocardial infarction with thrombotic occlusion of the obtuse marginal. Critical stenosis of the body of the right coronary. Plan: Emergency PCI Intervention: Procedure: PCI and stenting of the obtuse marginal branch. Primary stenting of the right coronary artery. Please see attached computer report for details. After reviewing diagnostic angiograms it was elected to proceed with emergency PCI. Patient was anticoagulated with heparin. 6 [place] sheath was exchanged into the right radial artery. Using a 6 [place] JL4 guiding catheter left main coronary was selectively intubated. Using a 0.014 luge wire thrombotic occlusion was crossed and the wire placed in the distal obtuse marginal branch. The lesion was ballooned open with 2 inflations with a 2 mm balloon. Repeat angiogram showed a gated MARYAM 2 flow. Was elected to proceed with stenting. 2.75 x 16 mm synergy stent was placed across the lesion. It required pre dilatation. It was deployed using a single inflation. There was distal plaque shift. A 2nd 2.5 x 12 mm synergy stent was placed distally after administration of intracoronary nitroglycerin. Repeat angiogram showed MARYAM grade 3 flow. Wire was withdrawn. Using a 6 [place] right guide the right coronary selectively intubated. Using a 0.014 [place] wire the RCA stenosis was crossed. It was primarily stented with a 3.5 x 28 mm synergy stent. It was post dilated with a 4 mm balloon. Repeat angiogram showed MARYAM grade 3 flow. Aortic valve was crossed with a pigtail catheter. Left ventricular angiography was performed. Catheters and sheath was removed over the wire. TR band was placed in the patient is taken to recovery for continued care. Conclusions: Acute posterior myocardial infarction with thrombotic occlusion of the obtuse marginal branch status post successful PCI and stenting. Critical RCA stenosis status post successful PCI and stenting. Patient be continued on aggressive secondary prevention. Avoid supplements with cardiotoxicity. Dual antiplatelet therapy for 1 year. Patient Problems: Problems Problem Status Onset Chest pain Acute Troponin level elevated Acute
--- NOTE | 2016-12-10 09:16 | CPEKG ---
Heart Rate: 64 RR Interval: 938 P-R Interval: 160 QRSD Interval: 100 QT Interval: 400 QTC Interval: 413 P [place]: 55 QRS [place]: 45 T Wave [place]: 36 EKG Severity - NORMAL ECG - EKG Impression: SINUS RHYTHM EKG Impression: ST elevation in aVF, II Electronically Signed By: Angel Ramirez 11-Dec-2016 10:54:16
--- NOTE | 2016-12-10 09:18 | CPEKG ---
Heart Rate: 43 RR Interval: 1395 P-R Interval: 164 QRSD Interval: 98 QT Interval: 468 QTC Interval: 396 P [place]: 49 QRS [place]: 17 T Wave [place]: 39 EKG Severity - ABNORMAL ECG - EKG Impression: SINUS BRADYCARDIA EKG Impression: PROBABLE INFERIOR INFARCT, OLD Preliminary Awaiting MD Review
[2016-12-10 10:52] LABS: ANION GAP 8 mEq/L (8-16); CALCIUM 8.5 mg/dL (8.5-10.4); CARBON DIOXIDE 24 mEq/l (22-31); CHLORIDE 104 mEq/L (97-110); CHOLESTEROL 239 mg/dL (140-200); CHOLESTEROL/HDL RATIO 5.56 RATIO (1.00-4.97); CREATININE 0.9 mg/dL (0.7-1.3); GLOMERULAR FILTRATION RATE > 60; GLUCOSE 88 mg/dL (70-100); HIGH DENSITY LIPOPROTEIN 43 mg/dL (40-65); LDL/HDL RATIO 4.07 RATIO (1.00-3.64); LOW DENSITY LIPOPROTEIN 175 mg/dL (70-100); MAGNESIUM 1.7 mg/dL (1.6-2.3); NON-HIGH DENSITY LIPOPROTEIN 196 mg/dL (90-129); SODIUM 136 mEq/L (134-144); TRIGLYCERIDE 106 mg/dL (40-150); VERY LOW DENSITY LIPOPROTEINS 21 mg/dL (8-25)
[2016-12-10] MEDS: ATORVASTATIN CALCIUM 40 MG TAB PO SCH (11:30)
[2016-12-10 11:51] LABS: CK-MB INTERPRETATION POSITIVE (NEGATIVE)
[2016-12-10] MEDS: LISINOPRIL 2.5 MG TAB PO SCH (12:25)
[2016-12-10] MEDS: METOPROLOL TARTRATE 25 MG TAB PO SCH ×3 (14:04→20:48)
[2016-12-10] MEDS: CLOPIDOGREL BISULFATE 75 MG TAB PO SCH (14:05)
[2016-12-10] MEDS: HYDROCODONE/APAP 5/325 TAB PO PRN ×2 (15:06→20:48)
[2016-12-10] MEDS: ASPIRIN EC 325 MG TAB PO SCH (15:06)
--- NOTE | 2016-12-10 18:22 | HOSPPROG ---
Hospitalist Progress Note Assessment/Plan: Patient seen w/ RN, had posterior acute IA w/ preserved EF on cath (60%), stents to OM and RCA - has some ongoing low-grade pain in back, symptoms much improved from presentation - encouraged patient to notify RN if sx escalating - started on ASA/plavix/hep gtt/metop/lisin/statin - checking A1c - monitoring on tele o/n given high risk of post-IA arrhythmias Objective: Vital Signs Temp Pulse Resp BP Pulse Ox 36.8 C 63 16 129/89 H 96 12/10/16 15:41 12/10/16 15:41 12/10/16 15:41 12/10/16 15:41 12/10/16 15:41 Laboratory Results 12/10/16 06:10 12/10/16 10:15 12/09/16 12/10/16 12/11/16 05:59 05:59 05:59 Intake Total 3925 Balance 3925 PT 13.8 SEC (12.0-15.0) 12/10/16 06:10 INR 1.07 (0.83-1.16) 12/10/16 06:10 ICD10 Worksheet Patient Problems: Problems Problem Status Onset Acute IA, lateral wall Acute Chest pain Acute Troponin level elevated Acute
[2016-12-10 19:59] LABS: POTASSIUM 4.4 mEq/L (3.5-5.2)
[2016-12-11 04:27] LABS: % IMMATURE GRANULYOCYTES 0.3 % (0.0-1.1); ABSOLUTE IMMATURE GRANULOCYTES 0.02 10^3/uL (0.00-0.10); ADD DIFF? NO; ADD MORPH? NO; ADD SCAN? NO; ATYPICAL LYMPHOCYTE FLAG 0 (0-99); FRAGMENT RBC FLAG 0 (0-99); HEMATOCRIT 39.4 % (40.0-51.0); HEMOGLOBIN 13.4 g/dL (13.7-17.5); LEFT SHIFT FLG 0 (0-99); LIPEMIA HEMOLYSIS FLAG 90 (0-99); MEAN CELL HEMOGLOBIN 31.2 pg (27.9-34.1); MEAN CELL VOLUME 91.8 fL (81.5-99.8); MEAN PLATELET VOLUME 9.9 fL (8.7-11.7); PLATELET CLUMPS FLAG 0 (0-99); PLATELET COUNT 163 10^3/uL (150-400); RED BLOOD CELL COUNT 4.29 10^6/uL (4.40-6.38); RED CELL DISTRIBUTION WIDTH 12.1 % (11.5-15.2)
[2016-12-11 04:44] LABS: ALBUMIN 3.6 g/dL (3.5-5.0); ANION GAP 9 mEq/L (8-16); ASPARTATE AMINOTRANSFERASE 152 IU/L (17-59); BILIRUBIN,TOTAL 0.7 mg/dL (0.1-1.4); CALCIUM 9.1 mg/dL (8.5-10.4); CARBON DIOXIDE 23 mEq/l (22-31); CHLORIDE 107 mEq/L (97-110); CREATININE 0.9 mg/dL (0.7-1.3); GLOMERULAR FILTRATION RATE > 60; GLUCOSE 83 mg/dL (70-100); LACTATE DEHYDROGENASE 1436 IU/L (313-618); MAGNESIUM 1.8 mg/dL (1.6-2.3); POTASSIUM 4.5 mEq/L (3.5-5.2); SODIUM 139 mEq/L (134-144)
[2016-12-11] MEDS ORDERED: MAGNESIUM SULF 1 GM/DEXTROSE 100 ML IV ONE (08:15)
--- NOTE | 2016-12-11 08:46 | CPEKG ---
Heart Rate: 59 RR Interval: 1017 P-R Interval: 152 QRSD Interval: 92 QT Interval: 404 QTC Interval: 401 P [place]: 55 QRS [place]: 40 T Wave [place]: 21 EKG Severity - ABNORMAL ECG - EKG Impression: SINUS RHYTHM EKG Impression: PROBABLE INFERIOR INFARCT, AGE INDETERMINATE Electronically Signed By: Robel Peng 15-Dec-2016 08:31:47
[2016-12-11] MEDS ORDERED: Herbals/Supplements -Info Only PO SCH (09:00)
[2016-12-11 09:42] LABS: HEMOGLOBIN A1C 5.4 % (4.0-6.0)
--- NOTE | 2016-12-11 10:07 | ECHO ---
[email or web address] [address] Main: [phone] Fax: [email or web address] Echocardiogram Name: MARGARETTE BOWENS MR#: [id number] Study Date: 12/11/2016 Study Time: 08:22 AM Date of : 1980 Age: 36 year(s) Height: 177.8 cm (70 in.) Weight: 95.26 kg (210 lb.) BSA: 2.13 m2 Gender: Male Examination: Echo Indication: F/U stent placement/ Eval LV and assessment of MV Image Quality: Contrast: Requested by: Alec Hoskins BP: 108 mmHg/63 mmHg Heart Rate: Rhythm: Indication: F/U stent placement/ Eval LV and assessment of MV Procedure Staff Driver/Refuse Collector: Billie Francisco Reading Physician: Alec Hoskins Requesting Provider: Conclusions: Status post posterior myocardial infarction with preserved ejection fraction of 60-65% and akinetic inferolateral segments. Mitral valve is intact without significant regurgitation. Measurements: Chambers Valvular Assessment AV/MV Valvular Assessment TV/PV Normal Normal Normal Name Value Range Name Value Range Name Value Range Ao Tanisha (MM): 3.3 cm (2.2 cm-3.7 AV Vmax: 1.25 m/s (1 m/s-1.7 TR Vmax: 3.06 mm/s ( - ) cm) m/s) TR PGmax: 37 mmHg ( - ) IVSd (2D): 0.8 cm (0.6 cm-1.1 AV maxP mmHg ( - ) syst. PAP: 42 mmHg ( - ) cm) MV E Vmax: 0.98 m/s ( - ) LVDd (2D): 5.3 cm (4.2 cm-5.9 MV A Vmax: 0.48 m/s ( - ) cm) MV E/A: 2.04 ( - ) LVDs (2D): 3.6 cm (2.1 cm-4 cm) LVPWd (2D): 0.9 cm (0.6 cm-1 cm) LVEF (MOD4): 67 % (>=55 %) EF Range: 60-65 % Continued Measurements: Chambers Valvular Assessment AV/MV Valvular Assessment TV/PV Name Value Name Value Name Value LADs Lon.9 cm MV E/E' Septal: 7.60 CVP (est.): 5 mmHg LA Area: 18.2 cm2 MV E/E' Lateral: 8.70 Patient: MARGARETTE BOWENS Study Date: 12/11/2016 Page 1 of 2 08:22 AM Findings: Left Ventricle: Normal size left ventricle. LV basal inferior and basal inferolateral mohamud are akinetic. All remaining LV segments have normal motion. The ejection fraction is estimated to be 60-65 %. Right Ventricle: Normal size right ventricle. Left Atrium: The left atrium is normal in size. Right Atrium: The right atrium is normal in size. Mitral Valve: The mitral valve is normal in appearance. Mild mitral valve regurgitation is present. Aortic Valve: The aortic valve is tri-leaflet and functions normally. There is no aortic valve regurgitation. Tricuspid Valve: The tricuspid valve appears normal. Mild tricuspid regurgitation is present. Pericardium: Trivial anterior pericardial effusion. (No Signature Object) Patient: MARGARETTE BOWENS Study Date: 12/11/2016 Page 2 of 2 08:22 AM [id number]
[2016-12-11] MEDS: LISINOPRIL 2.5 MG TAB PO SCH (10:50)
[2016-12-11] MEDS: CLOPIDOGREL BISULFATE 75 MG TAB PO SCH (10:50)
[2016-12-11] MEDS: ATORVASTATIN CALCIUM 40 MG TAB PO SCH (10:50)
[2016-12-11] MEDS: CHOLECALCIFEROL VIT D3 1,000 UNITS TAB PO SCH (10:50)
[2016-12-11] MEDS: MULTIVITAMINS 1 EACH TAB PO SCH (10:51)
[2016-12-11] MEDS: METOPROLOL TARTRATE 25 MG TAB PO SCH ×2 (10:51→19:56)
[2016-12-11] MEDS: ASPIRIN EC 325 MG TAB PO SCH (10:51)
--- NOTE | 2016-12-11 10:58 | CPEKG ---
Heart Rate: 63 RR Interval: 952 P-R Interval: 156 QRSD Interval: 92 QT Interval: 400 QTC Interval: 410 P [place]: 60 QRS [place]: 16 T Wave [place]: 4 EKG Severity - BORDERLINE ECG - EKG Impression: SINUS RHYTHM EKG Impression: LOW VOLTAGE IN FRONTAL LEADS EKG Impression: BORDERLINE INFERIOR Q WAVES Electronically Signed By: Robel Peng 15-Dec-2016 08:31:54
--- NOTE | 2016-12-11 11:27 | SOAPPROG ---
[facility] Progress Note Assessment/Plan: Assessment: 1. Acute lateral wall myocardial infarction. s/p PCI and stenting 2. Hyperlipidemia Procedures: PCI 12-10-2016. Echocardiogram 12-11-16 Virtual Customer Assistant: JOHN 12/11/16 11:23 Impression: Day 1 s/p KS. Uncomplicated. Normal mitral valve by Echo. Preserved LV function. ECG normal . Stable vital signs. Clear risk factor in hyperlipidemia. -Rehab. phase 1. -Likely discharge in am -optimize medical regime. Subjective: Anxious, nervous about future. No chest pain. Mild tingling at puncture site. Left arm pain, different than [place]. No pnd, orthopnea. No syncope, near syncope. Objective: Medications Generic Name Dose Route Start Last Admin Trade Name Freq PRN Reason Stop Dose Admin Clopidogrel Bisulfate 75 mg 12/10/16 09:00 12/11/16 10:50 Plavix PO 06/08/17 08:59 75 mg DAILY CASANDRA Aspirin Buffered 325 mg 12/10/16 09:00 12/11/16 10:51 Aspirin Ec PO 06/08/17 08:59 325 mg DAILY CASANDRA Medications Generic Name Dose Route Start Last Admin Trade Name Freq PRN Reason Stop Dose Admin Lisinopril 2.5 mg 12/10/16 09:00 12/11/16 10:50 Zestril PO 06/08/17 08:59 2.5 mg DAILY [facility] Atorvastatin Calcium 80 mg 12/10/16 09:00 12/11/16 10:50 Lipitor PO 06/08/17 08:59 80 mg DAILY [facility] Clopidogrel Bisulfate 75 mg 12/10/16 09:00 12/11/16 10:50 Plavix PO 06/08/17 08:59 75 mg DAILY [facility] Metoprolol Tartrate 25 mg 12/10/16 09:00 12/11/16 10:51 Lopressor PO 06/08/17 08:59 25 mg BID [facility] Vital Signs Temp Pulse Resp BP Pulse Ox 36.8 C 50 L 16 108/63 94 12/11/16 07:42 12/11/16 07:42 12/11/16 07:42 12/11/16 07:42 12/11/16 07:42 Laboratory Results 12/11/16 03:25 12/11/16 03:25 12/10/16 12/11/16 12/12/16 05:59 05:59 05:59 Intake Total 3975 Balance 3975 PT 13.8 SEC (12.0-15.0) 12/10/16 06:10 INR 1.07 (0.83-1.16) 12/10/16 06:10 Laboratory Tests 12/10/16 12/10/16 10:15 10:15 Creatine Kinase 3296 H Troponin I 73.100 H Cholesterol 239 H LDL Cholesterol, Calc 175 H - Pending Discharge Pending Discharge Within 24 Hours: Yes Pending Discharge Date: 12/12/16 Pending Discharge Time: 11:00 Physical Exam - Physical Exam General Appearance: alert, no apparent distress EENT: PERRL/EOMI, normal ENT inspection Neck: non-tender, full range of motion, supple Respiratory: chest non-tender, lungs clear, normal breath sounds Cardiac/Chest: normal peripheral pulses, regular rate, rhythm, No edema, No gallop, No JVD Peripheral Pulses: 1+: carotid (R), carotid (L) Abdomen: normal bowel sounds, non-tender, soft Back: Normal inspection Skin: normal color, warm/dry Lymphatic: no adenopathy Neuro/Psych: no motor/sensory deficits, alert, oriented x 3 ICD10 Worksheet Patient Problems: Problems Problem Status Onset Acute [place], lateral wall Acute Chest pain Acute Troponin level elevated Acute Review of Systems - Review of Systems Constitutional: denies: fever EENTM: no symptoms reported Respiratory: no symptoms reported Cardiac: no symptoms reported Gastrointestinal/Abdominal: no symptoms reported Genitourinary: no symptoms Musculoskelatal: other (arm pain) Skin: no symptoms Neurological: anxiety Hematologic/Lymphatic: no symptoms reported
--- NOTE | 2016-12-11 13:51 | ASMTCMCOM ---
CM Note CM Note Notes: 12/11/2016 Case Management Note Reviewed chart. No case management d/c needs identified d/t pt age and activity levels prior to admission. Case Management d/c poc: home independent with follow up as directed. Case Management available if needs change. Date Signed: 12/11/2016 01:50 PM Electronically Signed By:Marybeth Maynard RN
--- NOTE | 2016-12-11 17:03 | HOSPPROG ---
Hospitalist Progress Note Assessment/Plan: Assessment: 36 yo M p/w acute lateral wall myocardial infarction Plan: # Acute [place]. Lateral wall, w/ recurrent left arm pain today requiring further w/ u including EKG (w/ III Q/TWI, personally interpreted), Echo w/ preserved EF and normal MV - d/w Dr. Hoskins, he recommends that given high risk [place] and ongoing intermittent discomfort, monitor for additional 24hrs on tele to ensure no VTach (none on tele thus far) or complications - cont ASA/plavix/bblocker/statin/ACEi - A1c pending Diet. Cardiac PPx. High risk, on hep gtt Code. Full Dispo. ADD 12/12, pending no complications. Subjective: patient reports left arm pain radiating distally Objective: Vital Signs Temp Pulse Resp BP Pulse Ox 36.9 C 62 18 125/65 H 97 12/11/16 16:00 12/11/16 16:00 12/11/16 16:00 12/11/16 16:00 12/11/16 16:00 Laboratory Results 12/11/16 03:25 12/11/16 03:25 12/10/16 12/11/16 12/12/16 05:59 05:59 05:59 Intake Total 3975 Balance 3975 PT 13.8 SEC (12.0-15.0) 12/10/16 06:10 INR 1.07 (0.83-1.16) 12/10/16 06:10 - Physical Exam Constitutional: no apparent distress, appears nourished, not in pain, No uncomfortable Cardiovascular: regular rate and rhythym, no murmur, rub, or gallop (distant), No edema Respiratory: no respiratory distress, no rales or rhonchi, clear to auscultation Gastrointestinal: normoactive bowel sounds, soft, non-tender abdomen, no palpable masses Musculoskeletal: other (full ROM L shoulder w/o pain, no tenderness over shoulder, bicep, forearm, or pectoralis, full ROM L elbow/wrist) Psychiatric: interacting appropriately, not anxious, not encephalopathic, thought process linear ICD10 Worksheet Patient Problems: Problems Problem Status Onset Acute [place], lateral wall Acute Chest pain Acute Troponin level elevated Acute
[2016-12-11] MEDS ORDERED: MAGNESIUM HYDROXIDE 30 ML UDCUP PO PRN (17:04)
[2016-12-11] MEDS ORDERED: BISACODYL 10 MG SUPP PR PRN (17:04)
[2016-12-11] MEDS ORDERED: LACTULOSE 20 GM/30 ML UDCUP PO PRN (17:04)
[2016-12-11] MEDS ORDERED: POLYETHYLENE GLYCOL 3350 17 GM PKT PO PRN (17:04)
[2016-12-11] MEDS: SENNOSIDES/DOCUSATE SODIUM TAB PO SCH (19:54)
[2016-12-11] MEDS: HYDROCODONE/APAP 5/325 TAB PO PRN (19:55)
[2016-12-12 08:04] VITALS: BP 107/62; PULSE 54; RESP 17; TEMP 98.1; O2SAT 95
--- NOTE | 2016-12-12 09:04 | CPEKG ---
Heart Rate: 53 RR Interval: 1132 P-R Interval: 160 QRSD Interval: 92 QT Interval: 400 QTC Interval: 376 P [place]: 51 QRS [place]: 53 T Wave [place]: 18 EKG Severity - NORMAL ECG - EKG Impression: SINUS RHYTHM Electronically Signed By: Robel Peng 15-Dec-2016 08:31:59
[2016-12-12] MEDS: ATORVASTATIN CALCIUM 40 MG TAB PO SCH (10:44)
[2016-12-12] MEDS: METOPROLOL TARTRATE 25 MG TAB PO SCH (10:44)
[2016-12-12] MEDS: ASPIRIN EC 325 MG TAB PO SCH (10:44)
[2016-12-12] MEDS: LISINOPRIL 2.5 MG TAB PO SCH (10:45)
[2016-12-12] MEDS: CLOPIDOGREL BISULFATE 75 MG TAB PO SCH (10:45)
[2016-12-12] MEDS: MULTIVITAMINS 1 EACH TAB PO SCH (10:46)
[2016-12-12] MEDS: CHOLECALCIFEROL VIT D3 1,000 UNITS TAB PO SCH (10:46)
[2016-12-12] MEDS: SENNOSIDES/DOCUSATE SODIUM TAB PO SCH (10:47)
--- NOTE | 2016-12-12 11:22 | PDDCSUM ---
Discharge Summary Discharge Summary: Date of admission: 12/10/2016 Date of discharge: 12/13/2016 Admission diagnosis: Lateral myocardial infarction Discharge diagnosis: Lateral myocardial infarction, hyperlipidemia Procedures: Left heart catheterization PCI and stenting of the dominant right coronary and completely occluded circumflex artery. Echocardiogram Follow-up [facility] primary care 14 days. Follow-up [facility] 7-10 days Cardiology Follow-up cardiac rehabilitation phase 2. Consultation: Hospital Medicine Medications please see the attached discharge form. Hospital course: 36-year-old male admitted with acute myocardial infarction. He is taken to the cardiac catheterization lab found to have a thrombotic lead occluded obtuse marginal branch and underwent successful PCI and stenting he had residual severe right coronary artery stenosis and underwent PCI of this vessel as well. He received 3 drug-eluting synergy stents. He tolerated the procedure well. On day 1 patient an echocardiogram showing an intact mitral valve with complete normalization of left ventricular systolic function. Risk assessment revealed hyperlipidemia with elevated LDL cholesterol of 175 mg/dL. He was started on high-dose statin therapy. He was continued on Mohit inhibitor, beta-esme, dual antiplatelet therapy which he tolerated well. On the day of discharge blood pressure was 110/70 heart rate was 62 chest was clear cardiac exam showed regular rhythm his radial artery puncture site was healing well without ecchymosis erythema or edema. He is discharged home today with follow- up in 1 week. Will plan for aggressive cardiac rehabilitation and secondary risk factor reduction. Questions were answered. He will follow up as outlined above.
--- NOTE | 2016-12-12 14:34 | ASDISCHSUM ---
Discharge Information Plan Status:Home with No Needs Medically Cleared to Leave:12/12/2016 Discharge Date:12/12/2016 01:42 PM CM D/C Disposition:Home, Routine, Self-Care ADT D/C Disposition:Home, Routine, Self-Care Projected Discharge Date:12/12/2016 12:00 AM Transportation at D/C:Self Discharge Delay Reason: Follow-Up Date:12/12/2016 12:00 AM Discharge Slot: Final Diagnosis: Placement Information Patient Contact Information Contact Name:AKHILKWAN Relationship: Address: Work Phone: City: [facility] Phone: [facility] Code: Email: Financial Information Financial Class:HMO and PPO Plans Primary Plan Desc:[employer] Primary Plan Number:[id number] Secondary Plan Desc: Secondary Plan Number: Assessment Information [facility] CM Progress Note CM Note CM Note Notes: 12/11/2016 Case Management Note Reviewed chart. No case management d/c needs identified d/t pt age and activity levels prior to admission. Case Management d/c poc: home independent with follow up as directed. Case Management available if needs change. Date Signed: 12/11/2016 01:50 PM Electronically Signed By:Marybeth Maynard RN Intervention Information
== END 2016-12-12 13:42 | disposition home or self-care (01) | DRG 247 ==
LOC: F2W 12-10 12:52
PROVIDERS: ADMIT Family Medicine; ATTEND Family Medicine
PROC: 4A023N7 Measurement of Cardiac Sampling and Pressure, Left Heart, Percutaneous Approach (ICD-10-PCS; principal; 2016-12-10)
PROC: B2111ZZ Fluoroscopy of Multiple Coronary Arteries using Low Osmolar Contrast (ICD-10-PCS; principal; 2016-12-10)
PROC: B2151ZZ Fluoroscopy of Left Heart using Low Osmolar Contrast (ICD-10-PCS; principal; 2016-12-10)
PROC: 027135Z Dilation of Coronary Artery, Two Arteries with Two Drug-eluting Intraluminal Devices, Percutaneous Approach (ICD-10-PCS; principal; 2016-12-10)
DX: I21.29 ST elevation (STEMI) myocardial infarction involving other sites (principal); E78.5 Hyperlipidemia, unspecified; K21.9 Gastro-esophageal reflux disease without esophagitis; F41.9 Anxiety disorder, unspecified; E83.42 Hypomagnesemia; Z87.891 Personal history of nicotine dependence
CPT/HCPCS: 80305; 85520-90; 96365; C1725; C1769; C1874; C1887; C9600; C9606; J0583; J1200; J1644; J2060; J2250; J2405; J3010; J3475; Q9967